=== PATIENT | male | born 1940 | race Caucasian/White ===

== ENCOUNTER 2023-12-28 05:50 | Day surgery (SDC) | payer MEDICARE, OTHER, SELFPAY ==
[2023-12-21 13:21] VITALS: BMI 34.5
[2023-12-28] VITALS (11 sets, daily range): BP systolic 115–145; BP diastolic 66–90; BMI 32.6
[2023-12-28 06:36] LABS: Glucose - Point of Care 117 mg/dl (70-99)
[2023-12-28 08:48] LABS: ACT-LR - POC 322 Seconds (116-155)
[2023-12-28 09:07] LABS: ACT-LR - POC 284 Seconds (116-155)
[2023-12-28 09:27] LABS: ACT-LR - POC 295 Seconds (116-155)
[2023-12-28 09:51] LABS: ACT-LR - POC 327 Seconds (116-155)
--- NOTE | 2023-12-28 10:32 | ITS.CL.ABL ---
[employer] Officer - Ablation
Ablation
Procedure Report:
AFIB ablation:
Mr. Casarez is a very pleasant 83 yr old gentleman with medical history significant for symptomatic persistent atrial fibrillation with HTN, DM, CHF, HPL, who is here in the EP lab for atrial fibrillation ablation
Primary Chucking And Sawing Machine Operator: Dr. Schafer
Date of Procedure:
12/28/2023
Indications:
Symptomatic atrial fibrillation
Pre-Operative Diagnosis:
Persistent Atrial fibrillation
Post-Operative Diagnosis:
Persistent Atrial fibrillation
Procedure Performed:
Atrial fibrillation ablation with wide area circumferential ablation (WACA) approach for pulmonary vein isolation
Epicardial connection ablation in the left carinal area with carinal line formation
Performing Physician:
Magnolia Chase MD
Assistants:
EP staff
Anesthesia:
See anesthesia records
Detailed Description of the Procedure:
Written informed consent was obtained from the patient after a full explanation of the risks and benefits of the procedure including the risks of sedation and anesthesia.
The patient was brought to the electrophysiology laboratory in stable condition in fasting state. Continuous electrocardiographic and hemodynamic monitoring was initiated.
The initial rhythm was atrial fibrillation.
The procedure site was meticulously prepared with surgical scrub and allowed to dry with no pooling. Sterile draping was applied to cover the procedure site. The image intensifier was draped with sterile bag and positioned over the patient. After
infusion of local anesthetic, vascular access was obtained under ultrasound guidance and sheaths were placed over guide wire as detailed below.
Sheath and Catheter Placement:
In the right femoral vein, an 8-Equatorial [place] sheath was placed for use during the ablation procedure. A second 9-Fr sheath was placed for use during intracardiac echo procedure.
The sheaths were upgraded as needed during the case. Intracardiac catheters were positioned using direct fluoroscopic guidance.� ICE catheter was placed in RA. The following catheters / sheaths were placed
Sheaths:
��������������� VIZIGO sheath in right femoral vein upgraded from 8Fr in right femoral vein
��������������� 9Fr in right femoral vein
Catheters:
������������� Biosense Live Thermocool STSF bidirectional (D/F) - at locations of HRA, RV, LA and LV.
������������� Pentaray catheter � at locations of RA and LA
������������� ICE catheter - at locations of RA, SVC, and RV.
Intracardiac ECHO:
An 8-Equatorial [place] AcuNav intracardiac ECHO (ICE) probe was advanced through the 9-Equatorial [place] sheath in the femoral vein into the right atrium under fluoroscopic and ICE ultrasound image guidance and a baseline ECHO study was performed. The left atrial size
was normal. There was trace tricuspid regurgitation. The aortic valve was grossly normal. There was normal left ventricular size and function. There was a trace pericardial effusion. The MICHAEL has low velocities noted on Doppler in AF and sinus. All
the four veins were identified and good flow noted.
During the procedure, ICE was used for monitoring of complications, guidance of trans-septal puncture, monitor the catheter position and tracking ablation lesions. No change in the pericardial space noted throughout the procedure.
Trans-septal Puncture:
Heparin was initiated and infused to maintain appropriate ACT.
A J-tipped guidewire was advanced through the 8-Equatorial [place] sheath in the right femoral vein into the superior vena cava under fluoroscopic and ICE guidance. The 8-Equatorial [place] sheath was exchanged for an Vizigo sheath which was advanced into the superior vena
cava. A BRK needle was advanced until the tip was slightly behind the tip of the dilator inside the Vizigo. The apparatus was withdrawn until it was in contact with the fossa ovalis. The position was adjusted based on fluoroscopy and ultrasound
images from ICE. Under fluoroscopic, hemodynamic and ICE ultrasound guidance, left atrium was cannulated by advancing the needle. Once atrial septum was cannulated, the needle was pulled back and a BMW guide wire was advanced through the needle into
the left atrium. The guide wire was advanced into the left superior pulmonary vein. Both the sheath and the dilator was advanced into the left atrium. The dilator with the needle was withdrawn. Blood was aspirated from the Vizigo sheath and arterial
blood confirmed. The sheath was flushed. Saline injection noted into the left atrium on ICE. The pressure waveform was checked ad LA pressure measured. The penta-ray catheter was advanced in the Vizigo sheath into the left pulmonary vein.
The 3-D mapping was done and then the penta-ray was switched to ablation catheter and back to penta-ray as needed.
3D Electroanatomic Mapping:
Using the Pentaray catheter advanced through Vizigo sheath into the left atrium, an electroanatomic map (EAM) of the left atrium was created using [employer] Carto mapping system. The map was used for localization of catheter position and
tacking of ablation lesions. The EAM of the left atrium showed 4 pulmonary veins with all four electrically connected to the body the LA. It showed no significant scar on the posterior wall of the LA. The LA was normal in size.
Following the EAM, preparations were made for ablation.
Phrenic nerve stimulation attempt:
The right sided pulmonary veins were identified and the anterior antrum and the deep anterior locations of the PVs were check with high output stimulation that showed no phrenic nerve capture in any of the potential ablation areas. The whole of the
anterior wall was mapped and the deep veins were also tested and once no sign of phrenic capture noted, a design line was created through the areas of tested antral myocardium for ablation lesions.
Ablation:
Pulmonary vein Isolation:
Radiofrequency ablation was performed using an open irrigation, force-sensing 3.5mm radiofrequency ablation catheter (Thermocool STSF) by completing the circumferential lesions around the left and right pulmonary veins achieving pulmonary vein
isolation.
All the ablation lesions were guided by the [facility] SURPOINT module with the posterior lesions were limited to 45 diaz for SURPOINT lesion index goal of 400 and anterior wall lesions were limited to SURPOINT index goal of 450.
The esophagus was noted to be on the left side of the LA near the PV antra based on the locations of the esophageal temperature probe. Ablation was stopped for any temperature increase of 0.1 degree C. Max esophageal temperature was 38.9C.
Ablation # 2: Epicardial connection:
The epicardial connections around the quoc of the left sided PVs were identified by capturing LA from pacing from these locations. These locations were ablated and there was no capture noted after that.
Carinal line formation:
Given the presence of epicardial connection in the carinal area, the decision was made to create a full line of block be placing ablation lesions connecting from the posterior antral ablation lesions to the anterior antral ablations on right sided
veins.
EP study and Confirmation of the PVI and bidirectional block:
Following achievement of entrance block at the pulmonary veins, pacing from the pentaray catheter in each of the four veins at 10 milliamps for 2 milliseconds showed entrance and exit block. All PVI were rechecked at the end of the case and remained
isolated with dissociated and local capture with pacing. Entrance and exit block were demonstrated in all veins.
The LA was mapped with Carto EAM in sinus rhythm confirming the line of block at the ablation lesions lines.
Sinus Node Function: The sinus node functions are within acceptable normal range.
The AV alvin functions are deemed within normal range.
Arrhythmia Induction:
No sustained arrhythmia was induced at the end of the study.�
Procedure End
ICE study was done again that showed no epicardial accumulation. No complications noted.
Following the completion of the EP study, catheters were removed. Protamine 40 mg was given at the end of the procedure and ACT was checked repeatedly. The sheaths were removed and hemostasis achieved with �figure of 8 suture� and manual compression
after acceptable ACT is achieved.
Left atrial Pressure:
Pre-Procedure: Mean LA pressure was 10mmHg
Post-Procedure: Mean LA pressure was 17mmHg
Post-Procedure: Mean RA pressure was 10mmHg
Estimated Blood loss:
<10 cc
Specimens Removed:
None.
Implants / Devices:
None
Urine output:
None
Packs / Drains/ Tubes:
None
Instrument / Sponge Count Correct:
Yes
Complications of the Procedure:
None
Condition of Patient at Time of Transfer:
Hemodynamically stable with no neurological or vascular compromise.
Summary:
Successful atrial fibrillation ablation with circumferential bidirectional line of block at pulmonary vein antra (Pulmonary vein isolation), Epicardial connection ablation.
[2023-12-28 11:20] LABS: Glucose - Point of Care 143 mg/dl (70-99)
[2023-12-28 11:43] LABS: ACT-LR - POC 392 Seconds (116-155)
[2023-12-28 12:02] LABS: ACT-LR - POC 379 Seconds (116-155)
--- NOTE | 2023-12-28 14:32 | W.PN.UPDATE ---
Update Note
Progress Note Update
83 yo WM s/p PVI (same day). He feels good, no cp, sob, christian diet, voiding, R fem site c/d/i. EKG SR. He will continue OAC Eliquis dose at 4pm at home. He will continue metoprolol, we will add PPI x 2 weeks. ACtivity restrictions reviewed. He will
f/u in 2 weeks with TANKAGE [employer]. He is for d/c home afrter 3pm.
Mr. Casarez is a very pleasant 83 yr old gentleman with medical history significant for symptomatic persistent atrial fibrillation with HTN, DM, CHF, HPL, who is here in the EP lab for atrial fibrillation ablation
Primary Report Analyst: Dr. Schafer
Date of Procedure:
12/28/2023
Procedure Performed:
Atrial fibrillation ablation with wide area circumferential ablation (WACA) approach for pulmonary vein isolation
Epicardial connection ablation in the left carinal area with carinal line formation
== END 2023-12-28 15:02 | disposition home or self-care (01) ==
LOC: CATH 05:50
PROVIDERS: ATTENDING PHYSICIAN Internal Medicine Cardiovascular Disease; FAMILY PHYSICIAN Internal Medicine; OTHER PHYSICIAN Internal Medicine Cardiovascular Disease
DX: I48.91 Unspecified atrial fibrillation (principal); I11.0 Hypertensive heart disease with heart failure; I50.32 Chronic diastolic (congestive) heart failure; E11.9 Type 2 diabetes mellitus without complications; I34.2 Nonrheumatic mitral (valve) stenosis; Z79.01 Long term (current) use of anticoagulants; R06.09 Other forms of dyspnea; Z87.891 Personal history of nicotine dependence
CPT/HCPCS: C1769; C1732; C1892; C1894; 76937; 82962; 85347; 86900; 86901; 93005; 93656

== ENCOUNTER 2024-01-18 06:58 | Day surgery (SDC) | payer MEDICARE, OTHER, SELFPAY ==
[2024-01-18 07:41] VITALS: BMI 31.4
[2024-01-18 07:49] LABS: Glucose - Point of Care 149 mg/dl (70-99)
== END 2024-01-18 09:00 | disposition home or self-care (01) ==
LOC: CATH 06:58
PROVIDERS: ATTENDING PHYSICIAN Internal Medicine Cardiovascular Disease; FAMILY PHYSICIAN Internal Medicine; OTHER PHYSICIAN Internal Medicine Cardiovascular Disease
DX: I48.19 Other persistent atrial fibrillation (principal); I50.32 Chronic diastolic (congestive) heart failure; I11.0 Hypertensive heart disease with heart failure; I49.1 Atrial premature depolarization; Z79.01 Long term (current) use of anticoagulants; E11.9 Type 2 diabetes mellitus without complications
CPT/HCPCS: 82962; 92960; 93005

== ENCOUNTER → 2024-03-06 09:51 | Outpatient (REF) | payer MEDICARE, OTHER, SELFPAY ==
--- NOTE | 2024-03-06 10:52 | CARDSERVLU ---
Echocardiogram with [facility] completed after protocol screening completed. Allergies verified.
Patent IV site: _Right upper wrist 22 G PC____
IV site flushed with 0.9% NaCl pre and post administration.
Diluted bolus method utilized to enhance visualization of ventricular aldrich.
Total volume given: __2__ mL
Patient tolerated all procedures well without complications.
Heplock D/C ed at 1051, site clear, no redness, no edema. Pressure held for few minutes as pt on Eliquis. No bleeding, 22 applied and taped. Pt offers no complaints.
== END ==
LOC: RCS 09:51
PROVIDERS: ATTENDING PHYSICIAN Internal Medicine Cardiovascular Disease; FAMILY PHYSICIAN Internal Medicine
DX: I34.2 Nonrheumatic mitral (valve) stenosis (principal); R06.09 Other forms of dyspnea
CPT/HCPCS: 93307; Q9957

== ENCOUNTER → 2024-07-31 06:46 | Outpatient (REF) | payer MEDICARE, OTHER, SELFPAY ==
[2024-07-31 10:16] LABS: Microalbumin, Random Urine 6.3 mg/dl (0.6-1.7)
[2024-07-31 10:18] LABS: ALT (SGPT) 22 U/L (0-50); AST (SGOT) 29 U/L (17-59); Alkaline Phosphatase 67 U/L (38-126); Blood Urea Nitrogen 25 mg/dl (9-20); Calcium 9.3 mg/dl (8.4-10.2); Carbon Dioxide 23 mmol/L (22-30); Chloride 104 mmol/L (98-107); Glucose 82 mg/dl (70-99); HDL Cholesterol 44 mg/dl; LDL Cholesterol, Calculated 44 mg/dl; Potassium 4.4 mmol/L (3.5-5.1); Sodium 140 mmol/L (135-145); Total Bilirubin 0.7 mg/dl (0.2-1.3); Total Cholesterol 101 mg/dl (50-199); Total Protein 6.6 g/dl (6.3-8.2); Triglyceride 67 mg/dl (10-149); Very Low Density Lipoprotein 13 mg/dl (0-30); eGFR > 60.00
== END ==
LOC: HWLAB 06:46
PROVIDERS: ATTENDING PHYSICIAN Internal Medicine
DX: E11.59 Type 2 diabetes mellitus with other circulatory complications (principal); E78.2 Mixed hyperlipidemia
CPT/HCPCS: 36415; 80053; 80061; 82043; 83036

== ENCOUNTER → 2025-01-29 06:03 | Outpatient (REF) | payer MEDICARE, OTHER, SELFPAY ==
[2025-01-29 09:51] LABS: % Eosinophils 5.8 % (0-6); % Immature Granulocytes 0.2 % (0-0.5); % Lymphocytes 19.3 % (20.5-51.1); % Neutrophils 63.7 % (42.2-75.2); Absolute Basophils 0.1 10^3/uL (0-0.2); Absolute Eosinophils 0.4 10^3/uL (0-0.7); Absolute Lymphocytes 1.2 10^3/uL (1.2-3.4); Absolute Monocytes 0.6 10^3/uL (0.1-0.6); Absolute Neutrophils 3.8 10^3/uL (1.4-6.5); Hemoglobin 13.5 g/dL (13.0-18.0); Mean Corp Hgb Conc. 32.9 g/dL (33.0-37.0); Mean Corpuscular Hgb 29.8 pg (27.0-31.0); Mean Corpuscular Volume 90.5 fL (80.0-94.0); Mean Platelet Volume 9.5 fL (7.4-10.4); Nucleated Red Blood Cells % 0 % (-); Platelet Count 208 10^3/uL (130-400); Red Blood Cell Count 4.53 10^6/uL (4.70-6.10); Red Cell Dist. Width 14.6 % (11.5-14.5)
[2025-01-29 10:17] LABS: Microalbumin, Random Urine 6.9 mg/dl (0.6-1.7); Microalbumin/creatinine Ratio 55.1 mg/g
[2025-01-29 11:51] LABS: Glycohemoglobin (HgbA1c) 6.2 % (4.0-5.6)
[2025-01-29 13:02] LABS: ALT (SGPT) 23 U/L (0-50); AST (SGOT) 28 U/L (17-59); Albumin 4.2 g/dl (3.5-5.0); Alkaline Phosphatase 66 U/L (38-126); Blood Urea Nitrogen 21 mg/dl (9-20); Calcium 9.3 mg/dl (8.4-10.2); Carbon Dioxide 20 mmol/L (22-30); Chloride 105 mmol/L (98-107); Glucose 76 mg/dl (70-99); HDL Cholesterol 47 mg/dl; LDL Cholesterol, Calculated 46 mg/dl; Sodium 137 mmol/L (135-145); Total Bilirubin 0.6 mg/dl (0.2-1.3); Total Cholesterol 106 mg/dl (50-199); Total Protein 6.7 g/dl (6.3-8.2); Triglyceride 67 mg/dl (10-149); Very Low Density Lipoprotein 13 mg/dl (0-30); eGFR > 60.00
[2025-01-29 13:51] LABS: Potassium 4.5 mmol/L (3.5-5.1)
== END ==
LOC: HWLAB 06:03
PROVIDERS: ATTENDING PHYSICIAN Internal Medicine
DX: E11.59 Type 2 diabetes mellitus with other circulatory complications (principal); E78.2 Mixed hyperlipidemia
CPT/HCPCS: 36415; 80053; 80061; 82043; 82570; 83036; 85025

== ENCOUNTER → 2025-03-19 06:10 | Outpatient (REF) | payer MEDICARE, OTHER, SELFPAY ==
[2025-03-19 09:42] LABS: Hematocrit 41.3 % (39.0-52.0); Hemoglobin 13.7 g/dL (13.0-18.0); Mean Corp Hgb Conc. 33.2 g/dL (33.0-37.0); Mean Corpuscular Hgb 29.9 pg (27.0-31.0); Mean Corpuscular Volume 90.2 fL (80.0-94.0); Mean Platelet Volume 9.6 fL (7.4-10.4); Platelet Count 212 10^3/uL (130-400); Red Blood Cell Count 4.58 10^6/uL (4.70-6.10); Red Cell Dist. Width 14.6 % (11.5-14.5); White Blood Cell Count 5.8 10^3/uL (4.8-10.8)
[2025-03-19 09:57] LABS: Blood Urea Nitrogen 20 mg/dl (9-20); Calcium 9.2 mg/dl (8.4-10.2); Carbon Dioxide 24 mmol/L (22-30); Chloride 105 mmol/L (98-107); Glucose 98 mg/dl (70-99); Potassium 4.4 mmol/L (3.5-5.1); Sodium 138 mmol/L (135-145); eGFR > 60.00
== END ==
LOC: HWLAB 06:10
PROVIDERS: ATTENDING PHYSICIAN Internal Medicine Cardiovascular Disease; FAMILY PHYSICIAN Internal Medicine
DX: I10 Essential (primary) hypertension (principal)
CPT/HCPCS: 36415; 80048; 85027

== ENCOUNTER → 2025-07-02 06:11 | Outpatient (REF) | payer MEDICARE, OTHER, SELFPAY ==
[2025-07-02 10:07] LABS: Hematocrit 41.5 % (39.0-52.0); Hemoglobin 13.3 g/dL (13.0-18.0); Mean Corp Hgb Conc. 32.0 g/dL (33.0-37.0); Mean Corpuscular Volume 88.9 fL (80.0-94.0); Nucleated Red Blood Cells % 0 % (-); Platelet Count 222 10^3/uL (130-400); Red Cell Dist. Width 15.3 % (11.5-14.5)
[2025-07-02 10:25] LABS: Urine Character Clear (Clear)
[2025-07-02 10:53] LABS: Glycohemoglobin (HgbA1c) 6.5 % (4.0-5.6)
[2025-07-02 11:01] LABS: ALT (SGPT) 20 U/L (0-50); AST (SGOT) 24 U/L (17-59); Albumin 3.9 g/dl (3.5-5.0); Alkaline Phosphatase 56 U/L (38-126); Blood Urea Nitrogen 22 mg/dl (9-20); Calcium 9.0 mg/dl (8.4-10.2); Carbon Dioxide 23 mmol/L (22-30); Chloride 109 mmol/L (98-107); Glucose 87 mg/dl (70-99); HDL Cholesterol 45 mg/dl; LDL Cholesterol, Calculated 55 mg/dl; Potassium 4.4 mmol/L (3.5-5.1); Sodium 137 mmol/L (135-145); Total Protein 6.4 g/dl (6.3-8.2); Very Low Density Lipoprotein 16 mg/dl (0-30); eGFR > 60.00
[2025-07-02 11:23] LABS: Microalb - Urine Creatinine 101.100 mg/dl
[2025-07-02 11:26] LABS: Microalbumin, Random Urine 5.2 mg/dl (0.6-1.7)
[2025-07-02 11:33] LABS: Urine Squamous Cell 0-2 /LPF (Few)
[2025-07-02 11:34] LABS: Urine Red Blood Cell 0-2 /HPF (0-2); Urine White Cell 0-2 /HPF (0-5)
== END ==
LOC: HWLAB 06:11
PROVIDERS: ATTENDING PHYSICIAN Internal Medicine
DX: I50.32 Chronic diastolic (congestive) heart failure (principal); E11.59 Type 2 diabetes mellitus with other circulatory complications; E78.2 Mixed hyperlipidemia; K21.9 Gastro-esophageal reflux disease without esophagitis; I48.19 Other persistent atrial fibrillation; N20.0 Calculus of kidney
CPT/HCPCS: 36415; 80053; 80061; 81003; 81015; 82043; 82570; 83036; 83880; 85025